=== PATIENT | male | born 1955 | race Caucasian/White ===

== ENCOUNTER 2017-12-11 19:13 | Emergency (ER) | payer OTHER ==
[2017-12-11 19:24] VITALS: BP 131/98
--- NOTE | 2017-12-11 19:38 | EDPHY ---
H & P Time Seen by Provider: 12/11/17 19:25 HPI/ROS: CHIEF COMPLAINT: Head injury HISTORY OF PRESENT ILLNESS: The patient is a 62-year-old male with Parkinson's who to the [facility] emergency department after having a mechanical fall. The patient states he turned around in [place] and missed a step. This caused him to fall back striking the back of his head. He did not lose consciousness. However, since the fall he felt slightly"foggy." He has a minimal headache at this time. No focal deficits. No visual change. No neck or back pain. No chest pain or shortness of breath. REVIEW OF SYSTEMS: My complete review of systems is negative except as mentioned in the HPI. Past Medical/Surgical History: Parkinson's disease, anxiety Smoking Status: Former smoker Physical Exam: Vitals noted GENERAL: Well-appearing, in no acute distress, alert. HEAD: No evidence of trauma. EYES: PERRLA, EOMI, normal to inspection. ENT: Airway intact, no dental or oral injury, no malocclusion, no hemotympanum , normal external examination. NECK: The trachea is midline. There is no crepitus. The C-spine is nontender. NEXUS criteria is negative (no midline tenderness, no distracting injury, no altered mental status, no recent alcohol use, no focal neurologic deficit). RESPIRATORY: Clear to auscultation bilaterally, no rales, rhonchi or wheezing. There is no crepitus or palpable rib fractures. CVS: Regular rate and rhythm, no rubs, murmurs, or gallops. ABDOMEN: Soft, nontender, nondistended, normal bowel sounds, no bruising or abrasions. Pelvis: Stable. No tenderness palpation. Hips full range of motion. BACK: Normal to inspection, no spinal tenderness, no spinal step off, no notable bruising or abrasions. SKIN: Normal color, warm, dry. No pallor or diaphoresis. EXTREMITIES: Atraumatic, neurovascularly intact distally in all extremities, pelvis is stable , hips with full range of motion, moves all extremities freely. NEURO/PSYCH: Higher functions: Alert and Oriented x3. Normal speech and cognition. Normal mood and affect. Cranial nerves: Normal as tested. Cerebellar: Normal as tested. Good finger to nose, good [id number], normal gait. Peripheral exam: Normal motor exam. Normal sensation. Normal reflexes. Tremor. Constitutional: Initial Vital Signs Temperature (C) 36.8 C 12/11/17 19:22 Heart Rate 67 12/11/17 19:22 Respiratory Rate 18 12/11/17 19:22 Blood Pressure 131/98 H 12/11/17 19:22 O2 Sat (%) 98 12/11/17 19:22 O2 Delivery Mode Room Air Allergies/Adverse Reactions: No Known Allergies Allergy (Unverified 12/11/17 19:20) Home Medications: Medication Instructions Recorded Fluticasone Nasal 12/11/17 Prozac 10 MG (*) 12/11/17 SINEMET CR 50-200 TABLET 12/11/17 Medical Decision Making ED Course/Re-evaluation: In the emergency department I discussed possible etiologies with the patient. I answered all his questions. Patient ambulated well in the emergency department. At this time I do not feel the patient needs head CT imaging. He agrees with this plan. He was given warnings prior to leaving. He will return with worsening symptoms. Differential Diagnosis: My differential includes but is not limited to mechanical fall, ACS, dysrhythmia , dehydration, electrolyte abnormality, sugar abnormality, subarachnoid hemorrhage, subdural hematoma, epidural hematoma, spinal injury Departure - Departure Disposition: Home, Routine, Self-Care Clinical Impression: Head injury Qualifiers: Encounter type: initial encounter Qualified Code(s): S09.90XA - Unspecified injury of head, initial encounter Condition: Good Instructions: Head Injury (ED) Additional Instructions: Return with increasing pain, weakness, numbness or any other concerns. Follow up with your primary care physician. You been given the contact information for the on-call physician if you need a new physician. Referrals: Jason Maynard MD [[facility] Primary Care Provider] - 5-7 days, call for appt.
== END 2017-12-11 19:45 | disposition home or self-care (01) ==
LOC: EDUNIT#
DX: S09.90XA Unspecified injury of head, initial encounter (principal); G20 Parkinson's disease; Z87.891 Personal history of nicotine dependence; W01.198A Fall on same level from slipping, tripping and stumbling with subsequent striking against other object, initial encounter; Y92.89 Other specified places as the place of occurrence of the external cause; Y99.8 Other external cause status; Y93.89 Activity, other specified

== ENCOUNTER 2018-05-23 00:52 | Emergency (ER) | payer OTHER ==
--- NOTE | 2018-05-23 01:06 | EDPHY ---
H & P Stated Complaint: was treated for a UTI still having buring and blood in urine Time Seen by Provider: 05/23/18 01:04 HPI/ROS: HPI CHIEF COMPLAINT: Dysuria hematuria. HISTORY OF PRESENT ILLNESS: 62-year-old male, history of Parkinson's, hypertension, presents emergency room with hematuria dysuria. Patient denies any fever vomiting or back pain. Denies chest pain shortness of breath. Patient states that last Wednesday he was placed on antibiotics for possible UTI. He completed the course of antibiotics but does not remember the name of it. States tonight he notice worsening dysuria, hematuria. Denies any back pain, flank pain, abdominal pain, denies any chest pain or shortness of breath, denies fever. Due the hematuria dysuria decided come to the emergency room. Past Medical History: Parkinson's disease. Hypertension. Past Surgical History: Denies recent surgery however has had a cholecystectomy. Social History: Denies drugs alcohol tobacco. Family History: Noncontributory. ROS REVIEW OF SYSTEMS: 10 Systems were reviewed and negative with the exception of the elements mentioned in the history of present illness. Exam Constitutional appears well nontoxic no acute distress triage nursing summary reviewed, vital signs reviewed, awake/alert. Eyes normal conjunctivae and sclera, EOMI, PERRLA. HENT normal inspection, atraumatic, moist mucus membranes, no epistaxis, neck supple/ no meningismus, no raccoon eyes. Respiratory clear to auscultation bilaterally, normal breath sounds, no respiratory distress, no wheezing. Cardiovascular rate normal, regular rhythm, no murmur, no edema, distal pulses normal. Gastrointestinal soft, non-tender, no rebound, no guarding, normal bowel sounds, no distension, no pulsatile mass. Genitourinary no CVA tenderness. Musculoskeletal no midline vertebral tenderness, full range of motion, no calf swelling, no tenderness of extremities, no meningismus, good pulses, neurovascularly intact. Skin pink, warm, & dry, no rash, skin atraumatic. Neurologic awake, alert and oriented x 3, AAOx3, moves all 4 extremities equally, motor intact, sensory intact, CN II-XII intact, normal cerebellar, normal vision, normal speech. Psychiatric normal mood/affect. Heme/Lymph/Immune no lymphadenopathy. Differential Diagnosis: Includes but is not limited to in a particular order, UTI, cystitis, pyelonephritis, kidney stone. Medical Decision Making: Plan for this patient check UA. Vital signs are stable. Abdomen is benign. Re-evaluation: Patient's urinalysis reviewed shows UTI. Blood and white blood cells. Urine cultures been sent Here in emergency room the patient appears well nontoxic he is afebrile. Does not have any significant pain. Given that he 62 years old, and already completed a course of antibiotics and has ongoing UTI symptoms with a urinalysis indicates UTI will send for urine culture. I do recommend he follows up with Urology. I will allowed to go home as he has vital sign stability. Appears well nontoxic. I do recommend he takes Keflex and complete the entire course. Follow up with Urology. Also follow up with his primary care doctor. Additionally discussed return precautions with him he understands return emergency room if develops worsening symptoms including fever, abdominal pain, flank pain, back pain, vomiting. Source: Patient - Personal History Current Tetanus/Diphtheria Vaccine: Yes Current Tetanus Diphtheria and Acellular Pertussis (TDAP): Yes - Medical/Surgical History Hx Asthma: No Hx Chronic Respiratory Disease: No Hx Diabetes: No Hx Cardiac Disease: No Hx Renal Disease: No Hx Cirrhosis: No Hx Alcoholism: No Hx HIV/AIDS: No Hx Splenectomy or Spleen Trauma: No Other PMH: parkinsons, anxiety, low BP - Social History Smoking Status: Former smoker Constitutional: Initial Vital Signs Temperature (C) 36.6 C 05/23/18 00:53 Heart Rate 94 05/23/18 00:53 Respiratory Rate 18 05/23/18 00:53 Blood Pressure 188/126 H 05/23/18 00:53 O2 Sat (%) 95 05/23/18 00:53 O2 Delivery Mode Room Air Allergies/Adverse Reactions: No Known Allergies Allergy (Verified 05/23/18 00:56) Home Medications: Medication Instructions Recorded Fluticasone Nasal 12/11/17 Prozac 10 MG (*) 12/11/17 SINEMET CR 50-200 TABLET 12/11/17 Medical Decision Making - Data Points Laboratory Results: 05/23/18 00:57 Urine Color RED Urine Appearance MODERATELY TURBID Urine pH 6.0 (5.0-7.5) Ur Specific [place] 1.019 (1.002-1.030) Urine Protein 2+ H (NEGATIVE) Urine Ketones TRACE H (NEGATIVE) Urine Blood 3+ H (NEGATIVE) Urine Nitrate NEGATIVE (NEGATIVE) Urine Bilirubin NEGATIVE (NEGATIVE) Urine Urobilinogen NEGATIVE EU EU (0.2-1.0) Ur Leukocyte Esterase 2+ H (NEGATIVE) Urine RBC 50-182 /hpf H /hpf (0-3) Urine WBC 50-182 /hpf H /hpf (0-3) Ur Epithelial Cells TRACE /lpf /lpf (NONE-1+) Urine Mucus TRACE /lpf /lpf (NONE-1+) Urine Glucose NEGATIVE (NEGATIVE) Departure - Departure Disposition: Home, Routine, Self-Care Clinical Impression: UTI (urinary tract infection) Condition: Good Instructions: Dysuria (ED), Urinary Tract Infection in Men (ED) Additional Instructions: 1. Make sure to drink lots of fluids stay well-hydrated 2. Antibiotics as prescribed incomplete entire course 3. Please follow up with Urology 4. Please follow up with her primary care doctor 5. Return emergency room if you have worsening symptoms Referrals: CARSON GUZMAN [Primary Care Provider] - As per Instructions Juan Jose Chaney MD [Medical Doctor] - As per Instructions
[2018-05-23] MEDS ORDERED: CEPHALEXIN 500MG PREPACK#4 BTL TAKEHOME ONE (01:25)
[2018-05-23] MEDS ORDERED: CEPHALEXIN 500 MG CAP PO ONE (01:25)
[2018-05-23 01:54] VITALS: BP 144/76
== END 2018-05-23 02:07 | disposition home or self-care (01) ==
DX: N39.0 Urinary tract infection, site not specified (principal); G20 Parkinson's disease; I10 Essential (primary) hypertension; Z90.49 Acquired absence of other specified parts of digestive tract; Z87.891 Personal history of nicotine dependence

== ENCOUNTER 2018-07-29 13:02 | Emergency (ER) | payer OTHER ==
[2018-07-29 13:08] VITALS: BP 163/116
--- NOTE | 2018-07-29 14:18 | EDPHY ---
HPI/HX/ROS/PE/MDM Narrative: CHIEF COMPLAINT: Lower back pain HPI: The patient is a 62 y/o male with a history of Parkinson's disease complaining of "fluid-y" right lower back pain upon waking this morning. Earlier today it was tender to the touch, but this has improved upon assessment. He has not had pain like this previously. A week ago he fell and struck his left ribs. He was evaluated by his PCP at that time, but denies any having any imaging performed. For at least the last few days, he's noticed "solid" left flank and left lateral rib pain that is worse with palpation that may be related to this fall. He denies striking his head or other injuries from the fall. He also mentions he was treated for a UTI three weeks ago with multiple antibiotics and those symptoms resolved. He denies fever, urinary symptoms, weakness, paresthesias, or other acute complaints. REVIEW OF SYSTEMS: A comprehensive 10 system review of systems is otherwise negative aside from elements mentioned in the history of present illness. PMH: Parkinson's disease, kidney infection, UTIs SOCIAL HISTORY: Lives in [place]. . Retired. PHYSICAL EXAM: General:Patient is alert, in no acute distress. ENT:Eyes are normal to inspection. ENT inspection normal. Neck: Normal inspection. Full range of motion. Respiratory:No respiratory distress. Breath sounds normal bilaterally. Cardiovascular: Regular rate and rhythm. Strong peripheral pulses. Normal cap refill. Abdomen:The abdomen is nontender to palpation. There are no peritoneal signs. Back: Normal to inspection. No tenderness to palpation. Skin: Normal color. No rash. Warm and dry. Extremities: Normal appearance. Full range of motion. Neuro: Oriented x3. Normal motor function. Normal sensory function. ED Course: This is a 62 y/o male who presents with a few-hour history of lower back pain and left flank/lateral chest pain for the last few days in the setting of a recent fall one week ago and UTI three weeks ago. His pain has improved upon assessment and exam is unremarkable. He would like to proceed with an abdominal CT to rule out intraabdominal causes for his pain. IV established. ISTAT and 1L IV NS ordered. CT is negative for acute findings. Reassessed patient and discussed findings. He will be discharged home with standard care and follow up instructions. Return precautions discussed. He is comfortable with this plan. - Data Points Imaging Results: Imaging Impressions Abdomen CT 07/29/18 14:23 Impression: 1. No acute abdominopelvic process. 2. Prostatomegaly with mildly thickened bladder, likely related to chronic outlet obstruction. Would correlate with urine studies. Findings and recommendations discussed with Ezekiel Lewis MD at 1511 hour, 07/29/2018. Imaging: Discussed imaging studies w/ crew caller Radiologist, I viewed and interpreted images myself Laboratory Results: 07/29/18 14:45 POC Hgb 13.9 gm/dL gm/dL (13.7-17.5) POC Hct 41 % % (40-51) POC Sodium 139 mEq/L mEq/L (135-145) POC Potassium 3.8 mEq/L mEq/L (3.3-5.0) POC Chloride 101 mEq/L mEq/L (97-110) POC BUN 23 mg/dL mg/dL (7-23) POC Creatinine 1.0 mg/dL mg/dL (0.7-1.3) POC Glucose 96 mg/dL mg/dL (70-100) Point of Care Test Results: Chemistry 07/29/18 14:45 POC Sodium 139 mEq/L mEq/L (135-145) POC Potassium 3.8 mEq/L mEq/L (3.3-5.0) POC Chloride 101 mEq/L mEq/L (97-110) POC BUN 23 mg/dL mg/dL (7-23) POC Creatinine 1.0 mg/dL mg/dL (0.7-1.3) POC Glucose 96 mg/dL mg/dL (70-100) ISTAT H&H 07/29/18 14:45 POC Hgb 13.9 gm/dL gm/dL (13.7-17.5) POC Hct 41 % % (40-51) General Time Seen by Provider: 07/29/18 13:50 Initial Vital Signs: Initial Vital Signs Temperature (C) 36.6 C 07/29/18 13:06 Heart Rate 84 07/29/18 13:06 Respiratory Rate 18 07/29/18 13:06 Blood Pressure 163/116 H 07/29/18 13:06 O2 Sat (%) 95 07/29/18 13:06 O2 Delivery Mode Room Air Allergies/Adverse Reactions: No Known Allergies Allergy (Verified 07/29/18 13:04) Home Medications: Medication Instructions Recorded Fluticasone Nasal 12/11/17 Prozac 10 MG (*) 12/11/17 SINEMET CR 50-200 TABLET 12/11/17 Sleeping Pill 07/29/18 Departure - Departure Disposition: Home, Routine, Self-Care Clinical Impression: Lower back pain Qualifiers: Chronicity: acute Back pain laterality: left Sciatica presence: unspecified whether sciatica present Qualified Code(s): M54.5 - Low back pain Condition: Good Instructions: Back Pain (ED) Additional Instructions: Follow up with your primary care provider as needed for unimproved symptoms over the next few days. Use Tylenol and ibuprofen as directed on the packaging if needed for pain over the next few days. Return for worsening of condition. Referrals: Lorenzo Peralta DO [Doctor of Osteopathy] - As per Instructions Report Scribed for: Ezekiel Lewis Report Scribed by: Yisel Yanes Date of Report: 07/29/18 Time of Report: 14:18 Physician Review and Approval Statement: Portions of this note were transcribed by an ED scribe. I personally performed the history, physical exam, and medical decision making; and confirm the accuracy of the information in the transcribed note.
[2018-07-29] MEDS ORDERED: NS 1,000 ML IV ONE (14:21)
[2018-07-29] MEDS ORDERED: IOPAMIDOL (ISOVUE-300) 100 ML BTL ONE (14:49)
== END 2018-07-29 15:23 | disposition home or self-care (01) ==
DX: M54.5 Low back pain (principal); N40.0 Benign prostatic hyperplasia without lower urinary tract symptoms; G20 Parkinson's disease; Z87.440 Personal history of urinary (tract) infections
CPT/HCPCS: 82435-PO; 82565-PO; 82947-PO; 84132-PO; 84295-PO; 84520-PO; 85014-PO; Q9967

== ENCOUNTER 2018-07-31 22:46 | Emergency (ER) | payer OTHER ==
--- NOTE | 2018-07-31 22:58 | EDPHY ---
H & P Stated Complaint: "passed out for a second last night" hit head on pavement Time Seen by Provider: 07/31/18 22:58 HPI/ROS: HPI CHIEF COMPLAINT: Syncope, head strike. HISTORY OF PRESENT ILLNESS: Patient is a 62-year-old male, history of Parkinson 's, recurrent UTIs, hypertension, states that he was getting into a lyft last night, and had a syncopal episode. He reports to me that he has been having frequent lightheadedness and brief episodes of passing out. Fell last night with head strike hit the right front forehead. Denies chest pain or shortness of breath. States he decided come the emergency room as he has had increasing pain to the right forehead. No vomiting. Increasing lightheadedness. Past Medical History: Hypertension, Parkinson's, recurring UTI. Past Surgical History: No recent surgery Social History: Denies drugs alcohol tobacco. Family History: Noncontributory ROS REVIEW OF SYSTEMS: 10 Systems were reviewed and negative with the exception of the elements mentioned in the history of present illness. Exam Constitutional nontoxic no acute distress, GCS 15 triage nursing summary reviewed, vital signs reviewed, awake/alert. Eyes normal conjunctivae and sclera, EOMI, PERRLA. HENT head/neck right forehead hematoma. Otherwise no significant trauma on exam., moist mucus membranes, no epistaxis, neck supple/ no meningismus, no raccoon eyes. Respiratory clear to auscultation bilaterally, normal breath sounds, no respiratory distress, no wheezing. Cardiovascular rate normal, regular rhythm, no murmur, no edema, distal pulses normal. Gastrointestinal soft, non-tender, no rebound, no guarding, normal bowel sounds, no distension, no pulsatile mass. Genitourinary no CVA tenderness. Musculoskeletal no midline vertebral tenderness, full range of motion, no calf swelling, no tenderness of extremities, no meningismus, good pulses, neurovascularly intact. Skin pink, warm, & dry, no rash, skin atraumatic. Neurologic awake, alert and oriented x 3, AAOx3, moves all 4 extremities equally, motor intact, sensory intact, CN II-XII intact, normal cerebellar, normal vision, normal speech. Psychiatric normal mood/affect. Heme/Lymph/Immune no lymphadenopathy. Differential Diagnosis: Includes but is not limited to in a particular order intracranial bleed, skull fracture, subdural, contusion, vasovagal syncope, orthostatic syncope, dehydration, cardiac arrhythmia Medical Decision Making: Plan for this patient IV establishment IV fluid bolus 1 L normal saline, check basic blood work, EKG, troponin, CT scan head without contrast. Re-evaluate. Re-evaluation: EKG interpretation by me on record in [facility] system. Impression time of EKG 2313, sinus rhythm rate of 73, pr interval 278. Q-waves noted V1 V2 V3. CT scan head without contrast called to me by Dr. Torres. Negative. For bleed or skull fracture I was able to obtain an old EKG from [facility] the EKG dated 05/07/2017 is same morphology as the 1 today at [facility]. The EKG was performed due to syncope. He does not have any chest pain or shortness of breath. The patient had a recent fall with head strike. He has a right forehead hematoma. The CT scan of the head does not show any evidence of acute traumatic injury. Blood work reviewed. Repeat troponin negative. Repeat EKG time 2:19 a.m., sinus rhythm rate of 60, MD interval prolonged 278 Q- waves V1 V2 V3. Morphology unchanged from the previous EKG, and old EKG dated . No acute ischemic changes. Saint morphology. EKG was performed due to syncope. 0321: Patient reports to me that he has been having falling events and syncope 4 to 5 times a day. He states most likely if he goes home he will have a falling or syncopal episode. Given that he feels like he is going to fall he goes home and have recurrent syncope plan will be for observation overnight admission. The patient is a [facility] patient I have contacted [facility] at 3:21 a.m.. They have accepted him at [facility] The accepting physician is Dr. Pappas. Appropriate transfer will be set up. EMTALA filled out. Negative Head CT Source: Patient - Personal History Current Tetanus Diphtheria and Acellular Pertussis (TDAP): Yes - Medical/Surgical History Hx Asthma: No Hx Chronic Respiratory Disease: No Hx Diabetes: No Hx Cardiac Disease: No Hx Renal Disease: No Hx Cirrhosis: No Hx Alcoholism: No Hx HIV/AIDS: No Hx Splenectomy or Spleen Trauma: No Other PMH: parkinsons, anxiety, low BP - Social History Smoking Status: Former smoker Constitutional: Initial Vital Signs Temperature (C) 36.7 C 07/31/18 22:51 Heart Rate 78 07/31/18 22:51 Respiratory Rate 16 07/31/18 22:51 Blood Pressure 164/93 H 07/31/18 22:51 O2 Sat (%) 97 07/31/18 22:51 O2 Delivery Mode Room Air Allergies/Adverse Reactions: No Known Allergies Allergy (Verified 07/29/18 13:04) Home Medications: Medication Instructions Recorded Prozac 10 MG (*) 12/11/17 SINEMET CR 50-200 TABLET 12/11/17 Sleeping Pill 07/29/18 FLUDROCORTISONE ACETATE 07/31/18 FLUoxetine 20 mg 07/31/18 busPIRone 07/31/18 traZODone 50 mg 07/31/18 Medical Decision Making - Diagnostics Imaging Results: Imaging Impressions Chest X-Ray 07/31/18 23:06 IMPRESSION: No evidence for acute cardiopulmonary abnormality. Head CT 07/31/18 23:06 Impression: No evidence for skull fracture. No evidence for an acute intracranial abnormality. Results called and discussed with Yayo Bonilla MD at 07/31/2018 23:48. - Data Points Laboratory Results: Laboratory Results 07/31/18 23:10 07/31/18 23:10 08/01/18 07/31/18 07/31/18 02:16 23:15 23:10 WBC RBC Hgb Hct MCV MCH MCHC RDW Plt Count MPV Neut % (Auto) Lymph % (Auto) [place] % (Auto) Eos % (Auto) Baso % (Auto) Nucleat RBC Rel Count Absolute Neuts (auto) Absolute Lymphs (auto) Absolute Monos (auto) Absolute Eos (auto) Absolute Basos (auto) Absolute Nucleated RBC Immature Gran % Immature Gran # PT INR APTT Sodium 132 mEq/L L mEq/L (135-145) Potassium 3.2 mEq/L L mEq/L (3.5-5.2) Chloride 102 mEq/L mEq/L (97-110) Carbon Dioxide 22 mEq/l mEq/l (22-31) Anion Gap 8 mEq/L mEq/L (6-14) BUN 24 mg/dL H mg/dL (7-23) Creatinine 0.9 mg/dL mg/dL (0.7-1.3) Estimated GFR > 60 Glucose 171 mg/dL H mg/dL (70-100) Calcium 8.3 mg/dL L mg/dL (8.5-10.4) Magnesium 2.0 mg/dL mg/dL (1.6-2.3) Total Bilirubin 0.5 mg/dL mg/dL (0.1-1.4) Conjugated Bilirubin 0.3 mg/dL mg/dL (0.0-0.5) Unconjugated Bilirubin 0.2 mg/dL mg/dL (0.0-1.1) AST 21 IU/L IU/L (17-59) ALT 12 IU/L L IU/L (21-72) Alkaline Phosphatase 128 IU/L H IU/L (38-126) POC Troponin I 0.01 ng/mL ng/mL 0.01 ng/mL ng/mL (0.00-0.08) (0.00-0.08) NT-Pro-B Natriuret Pep 439 pg/mL H pg/mL (0-125) Total Protein 6.3 g/dL g/dL (6.3-8.2) Albumin 3.6 g/dL g/dL (3.5-5.0) 07/31/18 07/31/18 23:10 23:10 WBC 11.17 10^3/uL H 10^3/uL (3.80-9.50) RBC 4.21 10^6/uL L 10^6/uL (4.40-6.38) Hgb 13.8 g/dL g/dL (13.7-17.5) Hct 38.4 % L % (40.0-51.0) MCV 91.2 fL fL (81.5-99.8) MCH 32.8 pg pg (27.9-34.1) MCHC 35.9 g/dL g/dL (32.4-36.7) RDW 12.4 % % (11.5-15.2) Plt Count 180 10^3/uL 10^3/uL (150-400) MPV 8.3 fL L fL (8.7-11.7) Neut % (Auto) 81.2 % H % (39.3-74.2) Lymph % (Auto) 12.0 % L % (15.0-45.0) [place] % (Auto) 5.1 % % (4.5-13.0) Eos % (Auto) 1.1 % % (0.6-7.6) Baso % (Auto) 0.2 % L % (0.3-1.7) Nucleat RBC Rel Count 0.0 % % (0.0-0.2) Absolute Neuts (auto) 9.07 10^3/uL H 10^3/uL (1.70-6.50) Absolute Lymphs (auto) 1.34 10^3/uL 10^3/uL (1.00-3.00) Absolute Monos (auto) 0.57 10^3/uL 10^3/uL (0.30-0.80) Absolute Eos (auto) 0.12 10^3/uL 10^3/uL (0.03-0.40) Absolute Basos (auto) 0.02 10^3/uL 10^3/uL (0.02-0.10) Absolute Nucleated RBC 0.00 10^3/uL 10^3/uL (0-0.01) Immature Gran % 0.4 % % (0.0-1.1) Immature Gran # 0.05 10^3/uL 10^3/uL (0.00-0.10) PT 13.4 SEC SEC (12.0-15.0) INR 1.00 (0.83-1.16) APTT 31.1 SEC SEC (23.0-38.0) Sodium Potassium Chloride Carbon Dioxide Anion Gap BUN Creatinine Estimated GFR Glucose Calcium Magnesium Total Bilirubin Conjugated Bilirubin Unconjugated Bilirubin AST ALT Alkaline Phosphatase POC Troponin I NT-Pro-B Natriuret Pep Total Protein Albumin Medications Given: Discontinued Medications Sodium Chloride (Ns) 1,000 mls @ 0 mls/hr IV EDNOW ONE; Wide Open PRN Reason: Protocol Stop: 07/31/18 23:07 Last Admin: 07/31/18 23:17 Dose: 1,000 mls Potassium Chloride (Klor-Con) 40 meq PO EDNOW ONE Stop: 08/01/18 01:27 Last Admin: 08/01/18 01:27 Dose: 40 meq Point of Care Test Results: Chemistry 08/01/18 07/31/18 02:16 23:15 POC Troponin I 0.01 ng/mL ng/mL 0.01 ng/mL ng/mL (0.00-0.08) (0.00-0.08) Departure - Departure Disposition: Acute Care Hospital Not [facility] Clinical Impression: Scalp hematoma, Fall, Syncope, Hypokalemia Condition: Good Instructions: Contusion in Adults (ED), Fall Prevention (ED), Facial Contusion (ED) Additional Instructions: 1. Stay well-hydrated 2. Return emergency room if you have further events including passing out. 3. Follow up with your primary care doctor. Referrals: Patient,NotPresent [Primary Care Provider] - As per Instructions
[2018-07-31] MEDS ORDERED: NS 1,000 ML IV ONE (23:06)
[2018-07-31 23:22] LABS: PLATELET COUNT 180 10^3/uL (150-400)
[2018-07-31 23:30] LABS: PROTIME(PATIENT) 13.4 SEC (12.0-15.0)
[2018-08-01] MEDS ORDERED: POTASSIUM CL 20 MEQ PKT PO ONE (01:17)
[2018-08-01] MEDS ORDERED: POTASSIUM CL 20 MEQ TAB PO ONE (01:26)
[2018-08-01] MEDS ORDERED: POTASSIUM CL 20 MEQ TAB ONE (01:26)
[2018-08-01 03:41] VITALS: BP 141/116
--- NOTE | 2018-08-01 06:28 | CPEKG ---
Test Reason : OPEN Blood Pressure : / mmHG Vent. Rate : 060 BPM Atrial Rate : 060 BPM P-R Int : 278 ms QRS Dur : 101 ms QT Int : 469 ms P-R-T Axes : 065 031 028 degrees QTc Int : 469 ms Sinus rhythm Prolonged WI interval Anteroseptal infarct, old Confirmed by Yayo Bonilla ([id number]) on 08/01/2018 6:27:34 AM Referred By: Confirmed By:Yayo Bonilla
--- NOTE | 2018-08-01 06:28 | CPEKG ---
Test Reason : OPEN Blood Pressure : / mmHG Vent. Rate : 073 BPM Atrial Rate : 074 BPM P-R Int : 278 ms QRS Dur : 112 ms QT Int : 441 ms P-R-T Axes : 056 035 030 degrees QTc Int : 486 ms Sinus rhythm Prolonged [place] interval Anterior infarct, old Confirmed by Yayo Bonilla ([id number]) on 08/01/2018 6:27:34 AM Referred By: Confirmed By:Yayo Bonilla
--- NOTE | 2018-08-04 09:27 | CPEKG ---
Test Reason : OPEN Blood Pressure : / mmHG Vent. Rate : 060 BPM Atrial Rate : 060 BPM P-R Int : 287 ms QRS Dur : 102 ms QT Int : 450 ms P-R-T Axes : 058 022 026 degrees QTc Int : 450 ms Sinus rhythm Prolonged NE interval Left atrial enlargement Anterior infarct, old Confirmed by Mal Harman ([id number] on 08/04/2018 9:27:15 AM Referred By: Confirmed By:Mal Harman
== END 2018-08-01 03:57 | disposition short-term general hospital (02) ==
DX: S00.03XA Contusion of scalp, initial encounter (principal); R55 Syncope and collapse; E87.6 Hypokalemia; G20 Parkinson's disease; I10 Essential (primary) hypertension; W01.198A Fall on same level from slipping, tripping and stumbling with subsequent striking against other object, initial encounter; Y92.9 Unspecified place or not applicable; Y93.89 Activity, other specified; Y99.9 Unspecified external cause status
CPT/HCPCS: 84484-ER